=== PATIENT | male | born 1965 | race Caucasian/White ===

== ENCOUNTER 2017-08-27 21:06 | Emergency (ER) | payer MEDICARE ==
[~2017-08-27] VITALS: Ht 180.3 cm; Wt 79.4 kg
[2017-08-27 21:30] VITALS: BP 130/72
--- NOTE | 2017-08-27 21:35 | PHYS DOC ---
Past Medical History Past Medical History: Schizophrenia Past Surgical History: Other Additional Past Surgical Histo: R eye sx Alcohol Use: Heavy Drug Use: Cocaine, Marijuana, Other Adult General Chief Complaint Chief Complaint: COUGH HPI HPI Patient is a 51 year old male presents to the emergency Department with reported fever and cough. Patient states he leaves he has pneumonia. States he' s been sick for 3 days. Patient smokes 2 packs of cigarettes a day and drinks daily. He denies illicit drug use. Review of Systems Review of Systems Constitutional: Reported fever, not measured Eyes: Denies change in visual acuity, redness, or eye pain [] HENT: Denies nasal congestion or sore throat [] Respiratory: Productive cough green sputum, no shortness of breath, no wheezing Cardiovascular: No additional information not addressed in HPI [] GI: Denies abdominal pain, nausea, vomiting, bloody stools or diarrhea [] : Denies dysuria or hematuria [] Musculoskeletal: Denies back pain or joint pain [] Integument: Denies rash or skin lesions [] Neurologic: Denies headache, focal weakness or sensory changes [] Endocrine: Denies polyuria or polydipsia [] All other systems were reviewed and found to be within normal limits, except as documented in this note. Allergies Allergies Allergies Coded Allergies Type Severity Reaction Last Updated Verified No Known Drug Allergies 12/29/14 No Physical Exam Physical Exam Constitutional: Well developed, well nourished, no acute distress, non-toxic appearance. [] HENT: Normocephalic, atraumatic, bilateral external ears normal, tympanic membranes pearly waddell, oropharynx moist, posterior pharynx erythematous, no oral exudates, nose normal. [] Eyes: PERRLA, EOMI, conjunctiva normal, no discharge. [] Neck: Normal range of motion, no tenderness, supple, no stridor. [] Cardiovascular:Heart rate regular rhythm, no murmur [] Lungs & Thorax: Bilateral breath sounds clear to auscultation [] Skin: Warm, dry, no erythema, no rash. [] Current Patient Data Vital Signs Vital Signs Date Time Temp Pulse Resp B/P (MAP) Pulse Ox O2 Delivery O2 Flow Rate FiO2 08/27/17 21:30 98.0 90 18 130/72 (91) 100 Room Air 98.0 Lab Values Laboratory Tests Test 08/27/17 21:45 Influenza Type A Antigen Negative (NEGATIVE) Influenza Type B Antigen Negative (NEGATIVE) EKG EKG [] Radiology/Procedures Radiology/Procedures PA and lateral reviewed, no acute changes[] Course & Med Decision Making Course & Med Decision Making Influenza negative Patient is not coughed at all in the emergency department. He is afebrile. His saturations 90% on room air. Heart rate 92. Chest x-ray negative, influence a negative. Will discharge home with Pol[facility] Pertinent Labs and Imaging studies reviewed. (See chart for details) [] Dragon Disclaimer Dragon Disclaimer This electronic medical record was generated, in whole or in part, using a voice recognition dictation system. Departure Departure Impression: Primary Impression: Cough Disposition: 01 HOME, SELF-CARE Condition: STABLE Referrals: NO PCP (PCP) [facility] Patient Instructions: Cough, Adult, Smoking Cessation Scripts Benzonatate (TESSALON PERLE) 100 Mg Capsule 1 CAP PO TID, #21 CAP Prov: BELA PEDROZA APRN 08/27/17 BELA PEDROZA APRN Aug 27, 2017 21:35
[2017-08-27 22:14] LABS: OBC FLU VALID
[2017-08-27] MEDS ORDERED: BENZ100C PO (22:18)
--- NOTE | 2017-08-28 08:11 | RAD ---
Chest, 2 views, 08/27/2017: History: Cough, fever Comparison is made to a study from 12/29/2014. The heart size and pulmonary vascularity are normal. No pulmonary infiltrates are seen. There is no evidence of pleural fluid. IMPRESSION: No acute cardiopulmonary abnormality is detected.
== END 2017-08-27 22:24 | disposition home or self-care (01) ==
LOC: ER 21:06
DX: R05 Cough (principal); R50.9 Fever, unspecified; F20.9 Schizophrenia, unspecified; F10.20 Alcohol dependence, uncomplicated; F12.10 Cannabis abuse, uncomplicated; F14.10 Cocaine abuse, uncomplicated; F17.210 Nicotine dependence, cigarettes, uncomplicated
CPT/HCPCS: 71020; 87804; 99285-25

== ENCOUNTER 2019-01-01 13:02 | Inpatient (IN) | payer MEDICARE, OTHER ==
[~2019-01-01] VITALS: Ht 180.3 cm; Wt 76.2 kg
[~2019-01-01 13:02] MED LIST: BENZ100C PO
[2019-01-01] MEDS ORDERED: SENN-121 PO (13:11)
[2019-01-01] MEDS ORDERED: MAGN296S9 PO (13:11)
--- NOTE | 2019-01-01 13:16 | PHYS DOC ---
Past Medical History Past Medical History: Other Additional Past Medical Histor: pancreatitis, pna (YENI SALTER DO) Past Surgical History: No Surgical History Additional Past Surgical Histo: R eye sx (YENI SALTER DO) Alcohol Use: Occasionally Drug Use: Methamphetamine (YENI SALTER DO) Adult General Chief Complaint Chief Complaint: Constipation HPI HPI 53-year-old male presents via EMS with report of problems with constipation x 1- 2 months. Patient reports he feels he is currently "impacted ". Reports he hasn 't had a BM in this time. Reports he has been taking laxitives without relief, although he has recently been having watery stools. Denies any nausea or vomiting. Reports some abdominal fullness. Patient does report history of drug abuse including methamphetamines. (YENI SALTER DO) Review of Systems Review of Systems Constitutional: Denies fever or chills [] HENT: Denies nasal congestion or sore throat [] Respiratory: Denies cough or shortness of breath [] Cardiovascular: Denies chest pain or palpitations GI: Reports abdominal pain and constipation; denies nausea or vomiting : Denies dysuria or hematuria [] Musculoskeletal: Denies back pain or joint pain [] Integument: Denies rash or skin lesions [] Neurologic: Denies headache, focal weakness or sensory changes [] Complete systems were reviewed and found to be within normal limits, except as documented in this note. (YENI SALTER DO) Current Medications Current Medications Current Medications Medications (Trade) Dose Ordered Sig/Adi Start Time Stop Time Status Last Admin Dose Admin Fentanyl Citrate (Fentanyl 2ml Vial) 50 mcg 1X ONCE 01/01/19 17:00 01/01/19 17:01 DC 01/01/19 17:25 50 MCG Info (CONTRAST GIVEN -- Rx MONITORING) 1 each PRN DAILY PRN 01/01/19 16:45 01/03/19 16:44 Iohexol (Omnipaque 240 Mg/ml) 50 ml 1X ONCE 01/01/19 16:45 01/01/19 16:46 DC 01/01/19 16:32 50 ML Iohexol (Omnipaque 300 Mg/ml) 75 ml 1X ONCE 01/01/19 16:30 01/01/19 16:31 DC 01/01/19 16:31 75 ML Metronidazole 100 ml @ 100 mls/hr 1X ONCE 01/01/19 17:00 01/01/19 17:59 DC 01/01/19 17:24 100 MLS/HR Piperacillin Sod/ Tazobactam Sod 3.375 gm/Sodium Chloride 50 ml @ 100 mls/hr 1X ONCE 01/01/19 17:00 01/01/19 17:29 DC 01/01/19 17:24 100 MLS/HR Sodium Chloride 1,000 ml @ 1,000 mls/hr 1X ONCE 01/01/19 17:00 01/01/19 17:59 DC 01/01/19 17:23 1,000 MLS/HR (MAYCO ESCALANTE MD) Allergies Allergies Allergies Coded Allergies Type Severity Reaction Last Updated Verified No Known Drug Allergies 12/29/14 No (MAYCO ESCALANTE MD) Physical Exam Physical Exam Constitutional: Well developed, well nourished, no acute distress, non-toxic appearance. [] HENT: Normocephalic, atraumatic, oropharynx moist Eyes: Conjunctiva normal, no discharge. [] Neck: Normal range of motion, no tenderness, supple Cardiovascular: Heart rate regular rhythm, no murmur [] Lungs & Thorax: Bilateral breath sounds clear to auscultation [] Abdomen: Soft, mild distention Rectal: NO impacted or hard stool noted in rectal vault, some watery light brown liquid stool noted Skin: Warm, dry, no erythema, no rash. [] Extremities: No tenderness, ROM intact, no edema. [] Neurologic: Alert and oriented X 3, no focal deficits noted. [] Psychologic: Affect normal, judgement normal, mood normal. [] (YENI SALTER DO) Current Patient Data Vital Signs Vital Signs Date Time Temp Pulse Resp B/P (MAP) Pulse Ox O2 Delivery O2 Flow Rate FiO2 01/01/19 17:06 97 106/58 (74) 98 Room Air 01/01/19 13:14 98.1 14 98.1 (MAYCO ESCALANTE MD) Lab Values Laboratory Tests Test 01/01/19 15:15 White Blood Count 19.4 x10^3/uL (4.0-11.0) H Red Blood Count 4.59 x10^6/uL (4.30-5.70) Hemoglobin 15.0 g/dL (13.0-17.5) Hematocrit 43.3 % (39.0-53.0) Mean Corpuscular Volume 94 fL (79-100) Mean Corpuscular Hemoglobin 33 pg (25-35) Mean Corpuscular Hemoglobin Concent 35 g/dL (31-37) Red Cell Distribution Width 13.4 % (11.5-14.5) Platelet Count 189 x10^3/uL (140-400) Neutrophils (%) (Auto) 94 % (31-73) H Lymphocytes (%) (Auto) 1 % (24-48) L Monocytes (%) (Auto) 4 % (0-9) Eosinophils (%) (Auto) 0 % (0-3) Basophils (%) (Auto) 0 % (0-3) Neutrophils # (Auto) 18.3 x10^3uL (1.8-7.7) H Lymphocytes # (Auto) 0.3 x10^3/uL (1.0-4.8) L Monocytes # (Auto) 0.8 x10^3/uL (0.0-1.1) Eosinophils # (Auto) 0.0 x10^3/uL (0.0-0.7) Basophils # (Auto) 0.0 x10^3/uL (0.0-0.2) Segmented Neutrophils % 77 % (35-66) H Band Neutrophils % 17 % (0-9) H Lymphocytes % 4 % (24-48) L Monocytes % 2 % (0-10) Dohle Bodies Present Platelet Estimate Adequate (ADEQUATE) Erythrocyte Sedimentation Rate 65 (0-15) H Prothrombin Time 15.4 SEC (11.7-14.0) H Prothrombin Time INR 1.3 (0.8-1.1) H PTT 31 SEC (24-38) Sodium Level 135 mmol/L (136-145) L Potassium Level 3.1 mmol/L (3.5-5.1) L Chloride Level 92 mmol/L (98-107) L Carbon Dioxide Level 29 mmol/L (21-32) Anion Gap 14 (6-14) Blood Urea Nitrogen 18 mg/dL (8-26) Creatinine 1.2 mg/dL (0.7-1.3) Estimated GFR (Cockcroft-Gault) 63.8 BUN/Creatinine Ratio 15 (6-20) Glucose Level 122 mg/dL (70-99) H Lactic Acid Level 1.4 mmol/L (0.4-2.0) Calcium Level 8.7 mg/dL (8.5-10.1) Magnesium Level 2.6 mg/dL (1.8-2.4) H Total Bilirubin 0.8 mg/dL (0.2-1.0) Aspartate Amino Transferase (AST) 31 U/L (15-37) Alanine Aminotransferase (ALT) 27 U/L (16-63) Alkaline Phosphatase 88 U/L (46-116) Total Protein 8.1 g/dL (6.4-8.2) Albumin 3.7 g/dL (3.4-5.0) Albumin/Globulin Ratio 0.8 (1.0-1.7) L Lipase 75 U/L (73-393) Laboratory Tests 01/01/19 15:15 Laboratory Tests 01/01/19 15:15 (MAYCO ESCALANTE MD) Lab Values Laboratory Tests Test 01/01/19 15:15 White Blood Count 19.4 x10^3/uL (4.0-11.0) H Red Blood Count 4.59 x10^6/uL (4.30-5.70) Hemoglobin 15.0 g/dL (13.0-17.5) Hematocrit 43.3 % (39.0-53.0) Mean Corpuscular Volume 94 fL (79-100) Mean Corpuscular Hemoglobin 33 pg (25-35) Mean Corpuscular Hemoglobin Concent 35 g/dL (31-37) Red Cell Distribution Width 13.4 % (11.5-14.5) Platelet Count 189 x10^3/uL (140-400) Neutrophils (%) (Auto) 94 % (31-73) H Lymphocytes (%) (Auto) 1 % (24-48) L Monocytes (%) (Auto) 4 % (0-9) Eosinophils (%) (Auto) 0 % (0-3) Basophils (%) (Auto) 0 % (0-3) Neutrophils # (Auto) 18.3 x10^3uL (1.8-7.7) H Lymphocytes # (Auto) 0.3 x10^3/uL (1.0-4.8) L Monocytes # (Auto) 0.8 x10^3/uL (0.0-1.1) Eosinophils # (Auto) 0.0 x10^3/uL (0.0-0.7) Basophils # (Auto) 0.0 x10^3/uL (0.0-0.2) Segmented Neutrophils % 77 % (35-66) H Band Neutrophils % 17 % (0-9) H Lymphocytes % 4 % (24-48) L Monocytes % 2 % (0-10) Dohle Bodies Present Platelet Estimate Adequate (ADEQUATE) Erythrocyte Sedimentation Rate 65 (0-15) H Prothrombin Time 15.4 SEC (11.7-14.0) H Prothrombin Time INR 1.3 (0.8-1.1) H PTT 31 SEC (24-38) Sodium Level 135 mmol/L (136-145) L Potassium Level 3.1 mmol/L (3.5-5.1) L Chloride Level 92 mmol/L (98-107) L Carbon Dioxide Level 29 mmol/L (21-32) Anion Gap 14 (6-14) Blood Urea Nitrogen 18 mg/dL (8-26) Creatinine 1.2 mg/dL (0.7-1.3) Estimated GFR (Cockcroft-Gault) 63.8 BUN/Creatinine Ratio 15 (6-20) Glucose Level 122 mg/dL (70-99) H Lactic Acid Level 1.4 mmol/L (0.4-2.0) Calcium Level 8.7 mg/dL (8.5-10.1) Magnesium Level 2.6 mg/dL (1.8-2.4) H Total Bilirubin 0.8 mg/dL (0.2-1.0) Aspartate Amino Transferase (AST) 31 U/L (15-37) Alanine Aminotransferase (ALT) 27 U/L (16-63) Alkaline Phosphatase 88 U/L (46-116) Total Protein 8.1 g/dL (6.4-8.2) Albumin 3.7 g/dL (3.4-5.0) Albumin/Globulin Ratio 0.8 (1.0-1.7) L Lipase 75 U/L (73-393) Laboratory Tests 01/01/19 15:15 Laboratory Tests 01/01/19 15:15 (YENI SALTER DO) EKG EKG [] (YENI SALTER DO) Radiology/Procedures Radiology/Procedures [] (YENI SALTER DO) Radiology/Procedures [facility] [address] [place] [address] IMAGING REPORT Signed PATIENT: KHUSHI DELATORRE ACCOUNT: [id number] : 1965 LOCATION: ER AGE: 53 SEX: M EXAM STATUS: REG ER ORD. PHYSICIAN: YENI SALTER DO REASON: abdominal pain, constipation PROCEDURE: CT ABD PELV W/ORAL&IV CONTRAST CT of the abdomen and pelvis with contrast 01/01/2019 INDICATION: Abdominal pain. Constipation. COMPARISON STUDY: None available. TECHNIQUE: Multidetector CT imaging of the abdomen and pelvis was performed following the administration of IV contrast. FINDINGS: Visualized lung bases are unremarkable. Small calcification seen in the dome of the liver. There is a punctate nonspecific hypoattenuation in the posterior right liver measuring 3 mm in diameter (axial image 26). There is a second punctate hypodensity in the liver adjacent to the gallbladder fossa measuring 4 mm in diameter (axial image 26). These are too small to characterize by CT. The gallbladder is unremarkable. Spleen is unremarkable. The adrenal glands are grossly normal. The bilateral kidneys are grossly normal. Small cyst is seen within the superior lateral right kidney. Pancreas is somewhat poorly visualized given lack of surrounding fat appears to be grossly normal. There is fluid distention of the large bowel. The bladder is mildly distended. There is marked rectal wall thickening. There appears to be a resultant significant luminal narrowing. Mildly prominent mucosal enhancement appears to be present. Evaluation is limited secondary to lack of contrast within the rectum. Differential considerations include and infectious proctitis. Inflammatory bowel disease, or other inflammatory process. A neoplastic etiology is also possible. There is likely some component of reconstruction given the fluid-filled, most somewhat distended colon. No acute osseous changes are seen. IMPRESSION: 1. Marked thickening of the rectal wall with mildly prominent mucosal enhancement, and evidence of some degree of large bowel obstruction. Etiologies could be infectious or inflammatory. Neoplastic etiology is also possible. Consider endoscopic evaluation. 2. 2 tiny liver hypodensities which are nonspecific, too small to characterize. Consider follow-up imaging based on risk factors, possibly including subsequent rectal findings. 3. Bladder distention Findings discussed with the emergency room physician at 4:[address] DOSING PQRS STATEMENT: One or more of the following individualized dose reduction techniques were utilized for this examination: 1. Automated exposure control 2. Adjustment of the mA and/or kV according to patient size 3. Use of iterative reconstruction technique Electronically signed by: Dudley Anthony MD (01/01/2019 4:50 PM) [facility] DICTATED and SIGNED BY: DUDLEY ANTHONY MD DATE: 01/01/191649 (MAYCO ESCALANTE MD) Course & Med Decision Making Course & Med Decision Making Patient presents with history of present illness and physical exam concerning for constipation. Patient reports concern for possible impaction. Upon arrival patient ended up having liquid stool on floor. Rectal exam without impaction or hard stool in vault. Abdomen non-peritoneal. Patient has history of drug abuse. Labs ordered and pending. CT abd/pelvis also pending. IVF hydration given. Sign out given to Dr. Escalante for further evaluation and final disposition. Discussed current findings and plan with patient, who acknowledges understanding and agreement. (YENI SALTER DO) Course & Med Decision Making Evaluation of patient in ER showed 53-year-old male patient with complaining of rectal pain for more than one month with constipation . Patient had leukocytosis of 19.5 without elevation of lactic acid. Potassium was 3.1. CT of abdomen and pelvis showed thickening of wall of rectum with concern for proctitis or malignancy. Patient requiring admission for further evaluation and treatment. Discussed with Dr. García who is in agreement with admission. Discussed findings and plan with patient and family, who acknowledge understanding and agreement. (MAYCO ESCALANTE MD) Dragon Disclaimer Dragon Disclaimer This electronic medical record was generated, in whole or in part, using a voice recognition dictation system. (YENI SALTER DO) Departure Departure Impression: Primary Impression: Constipation Additional Impressions: Drug abuse Proctitis Hypokalemia Leukocytosis Disposition: ADMITTED INPATIENT (at 1705) Admitting Physician: Mary García (accepted admission at 1704) (MAYCO ESCALANTE MD) Condition: IMPROVED Referrals: NO PCP (PCP) Problem Qualifiers Primary Impression: Constipation Constipation type: unspecified constipation type Qualified Codes: K59.00 - Constipation, unspecified Additional Impressions: Leukocytosis Leukocytosis type: unspecified Qualified Codes: D72.829 - Elevated white blood cell count, unspecified YENI SALTER DO Jan 01, 2019 13:16 MAYCO ESCALANTE MD Jan 01, 2019 17:14
[2019-01-01 15:33] LABS: BASO % 0 % (0-3); EOS % 0 % (0-3); HEMATOCRIT 43.3 % (39.0-53.0); LYMPH # 0.3 x10^3/uL (1.0-4.8); LYMPH % 1 % (24-48); MEAN CORPUSCULAR HEMOGLOBIN 33 pg (25-35); MEAN CORPUSCULAR HGB CONC 35 g/dL (31-37); MEAN CORPUSCULAR VOLUME 94 fL (79-100); MONO # 0.8 x10^3/uL (0.0-1.1); MONO % 4 % (0-9); NEUT # 18.3 x10^3uL (1.8-7.7); NEUT % 94 % (31-73); PLATELET COUNT 189 x10^3/uL (140-400); RED BLOOD COUNT 4.59 x10^6/uL (4.30-5.70); RED CELL DISTRIBUTION WIDTH 13.4 % (11.5-14.5); WHITE BLOOD COUNT 19.4 x10^3/uL (4.0-11.0)
[2019-01-01 15:43] LABS: PROTHROMBIN TIME PATIENT 15.4 SEC (11.7-14.0)
[2019-01-01 15:52] LABS: % BANDS 17 % (0-9); % LYMPHS 4 % (24-48); % MONOS 2 % (0-10); % SEGS 77 % (35-66); PLT ESTIMATE ADEQUATE (ADEQUATE)
[2019-01-01 15:59] LABS: CALCIUM 8.7 mg/dL (8.5-10.1); CREATININE 1.2 mg/dL (0.7-1.3); GFR 63.8; POTASSIUM 3.1 mmol/L (3.5-5.1)
[2019-01-01 16:04] LABS: ALBUMIN 3.7 g/dL (3.4-5.0); ALBUMIN/GLOBULIN RATIO 0.8 (1.0-1.7); MAGNESIUM 2.6 mg/dL (1.8-2.4); TOTAL BILIRUBIN 0.8 mg/dL (0.2-1.0); TOTAL PROTEIN 8.1 g/dL (6.4-8.2)
[2019-01-01] MEDS ORDERED: IOHEXOL 300 MG/ML 100ML VIAL. IV ONE (16:30)
[2019-01-01] MEDS ORDERED: IOHEXOL 240 MG/ML 100 ML VIAL. IV ONE (16:30)
[2019-01-01] MEDS ORDERED: CONTRAST GIVEN. MC PRN (16:45)
[2019-01-01] MEDS ORDERED: IOHEXOL 240 MG/ML 50ML VIAL. PO ONE (16:45)
--- NOTE | 2019-01-01 16:54 | RAD ---
CT of the abdomen and pelvis with contrast 01/01/2019 INDICATION: Abdominal pain. Constipation. COMPARISON STUDY: None available. TECHNIQUE: Multidetector CT imaging of the abdomen and pelvis was performed following the administration of IV contrast. FINDINGS: Visualized lung bases are unremarkable. Small calcification seen in the dome of the liver. There is a punctate nonspecific hypoattenuation in the posterior right liver measuring 3 mm in diameter (axial image 26). There is a second punctate hypodensity in the liver adjacent to the gallbladder fossa measuring 4 mm in diameter (axial image 26). These are too small to characterize by CT. The gallbladder is unremarkable. Spleen is unremarkable. The adrenal glands are grossly normal. The bilateral kidneys are grossly normal. Small cyst is seen within the superior lateral right kidney. Pancreas is somewhat poorly visualized given lack of surrounding fat appears to be grossly normal. There is fluid distention of the large bowel. The bladder is mildly distended. There is marked rectal wall thickening. There appears to be a resultant significant luminal narrowing. Mildly prominent mucosal enhancement appears to be present. Evaluation is limited secondary to lack of contrast within the rectum. Differential considerations include and infectious proctitis. Inflammatory bowel disease, or other inflammatory process. A neoplastic etiology is also possible. There is likely some component of reconstruction given the fluid-filled, most somewhat distended colon. No acute osseous changes are seen. IMPRESSION: 1. Marked thickening of the rectal wall with mildly prominent mucosal enhancement, and evidence of some degree of large bowel obstruction. Etiologies could be infectious or inflammatory. Neoplastic etiology is also possible. Consider endoscopic evaluation. 2. 2 tiny liver hypodensities which are nonspecific, too small to characterize. Consider follow-up imaging based on risk factors, possibly including subsequent rectal findings. 3. Bladder distention Findings discussed with the emergency room physician at 4:[address] DOSING PQRS STATEMENT: One or more of the following individualized dose reduction techniques were utilized for this examination: 1. Automated exposure control 2. Adjustment of the mA and/or kV according to patient size 3. Use of iterative reconstruction technique Electronically signed by: Dudley Vu MD (01/01/2019 4:50 PM) [facility]
[2019-01-01] MEDS ORDERED: fentaNYL PF VIAL 100 MCG/2 ML VIAL IV ONE (17:00)
[2019-01-01] MEDS ORDERED: IV NORMAL SALINE 1000ML BAG 1,000 ML IV ONE (17:00)
[2019-01-01] MEDS ORDERED: PIPERACILLIN/TAZOBACTAM 3.375 GM in IV NORMAL SALINE 50ML 50 ML IV ONE (17:00)
[2019-01-01] MEDS ORDERED: ACETAMINOPHEN/CODEINE 300/30MG TABLET. PO PRN (17:15)
[2019-01-01] MEDS ORDERED: POTASSIUM CHLORIDE 20 MEQ TABLET.ER. PO ONE (17:15)
[2019-01-01] MEDS ORDERED: ONDANSETRON ODT 4 MG TAB.RAPDIS. PO PRN (17:15)
[2019-01-01] MEDS ORDERED: ACETAMINOPHEN 500 MG TABLET PO PRN (17:15)
[2019-01-01] MEDS ORDERED: diphenhydrAMINE HCL 25 MG CAPSULE PO PRN (17:15)
[2019-01-01] MEDS ORDERED: MAGNESIUM HYDROXIDE 2,400 MG/30 ML ORAL.SUSP. PO PRN (17:15)
[2019-01-01] MEDS ORDERED: ONDANSETRON PF 4 MG/2 ML VIAL. IV PRN (17:15)
--- NOTE | 2019-01-01 19:28 | PDOC1 ---
History and Physical Date of Admission Date of Admission DATE: 01/01/19 TIME: 19:23 Identification/Chief Complaint Chief Complaint weight Loss, palpable rectal mass by palpation, bloody BM Source Source: Caregiver, Chart review, Patient History of Present Illness History of Present Illness 53-year-old white male, does not usually see a PCP, only two home meds namely Haldol and benztropine for some psych issues. Has noticed significant weight loss and past few months, poor by mouth appetite, palpable rectal mass and bloody BM today which I witnessed in the bedside commode at ER. HE said he waited too long , he is concerned about cancer or that it could be malignant He denies known family history of rectal cancer or colon cancer but then again he is estranged from his family. NEver had c scope done or medical care really. CAT scan shows a possible rectal mass with some signs of inflammation or infectious process in that rectal area. Patient claims fever at home on ROS but I'm unsure how reliable that is. He does have leukocytosis. Patient admitted and will consult GS and GI because of this new rectal mass inflammation/ infection concerning for malignancy especially given overall clinical picture. I did update him and discuss with him my plan of care and he agrees Full code Seen at ER Does smoke tobacco significantly and is an occasional alcohol drinker Past Medical History Psych: Anxiety Past Surgical History Past Surgical History: No pertinent history Family History Family History: No Significant Social History Smoke: <1 pack per day ALCOHOL: occassional Drugs: None Current Problem List Problem List Problems Medical Problems: (1) Constipation Status: Acute (2) Drug abuse Status: Acute (3) Hypokalemia Status: Acute (4) Leukocytosis Status: Acute (5) Proctitis Status: Acute Current Medications Current Medications Current Medications Iohexol (Omnipaque 300 Mg/ml) 75 ml 1X ONCE IV Last administered on 01/01/19at 16:31; Start 01/01/19 at 16:30; Stop 01/01/19 at 16:31; Status DC Iohexol (Omnipaque 240 Mg/ml) 30 ml 1X ONCE IV ; Start 01/01/19 at 16:30; Stop 01/01/19 at 16:31; Status DC Iohexol (Omnipaque 240 Mg/ml) 50 ml 1X ONCE PO Last administered on 01/01/19at 16:32; Start 01/01/19 at 16:45; Stop 01/01/19 at 16:46; Status DC Info (CONTRAST GIVEN -- Rx MONITORING) 1 each PRN DAILY PRN MC SEE COMMENTS; Start 01/01/19 at 16:45; Stop 01/03/19 at 16:44 Sodium Chloride 1,000 ml @ 1,000 mls/hr 1X ONCE IV Last administered on at 17:23; Start 01/01/19 at 17:00; Stop 01/01/19 at 17:59; Status DC Fentanyl Citrate (Fentanyl 2ml Vial) 50 mcg 1X ONCE IV Last administered on 17:25; Start 01/01/19 at 17:00; Stop 01/01/19 at 17:01; Status DC Piperacillin Sod/ Tazobactam Sod 3.375 gm/Sodium Chloride 50 ml @ 100 mls/hr 1X ONCE IV Last administered on 01/01/19at 17:24; Start 01/01/19 at 17:00; Stop 01/01/19 at 17:29; Status DC Metronidazole 100 ml @ 100 mls/hr 1X ONCE IV Last administered on 01/01/19at 17 :24; Start 01/01/19 at 17:00; Stop 01/01/19 at 17:59; Status DC Potassium Chloride (Klor-Con) 40 meq 1X ONCE PO Last administered on 01/01/19at 17:25; Start 01/01/19 at 17:15; Stop 01/01/19 at 17:16; Status DC Magnesium Hydroxide (Milk Of Magnesia) 2,400 mg PRN DAILY PRN PO CONSTIPATION; Start 01/01/19 at 17:15 Docusate Sodium (Colace) 100 mg DAILY PO ; Start 01/02/19 at 09:00 Acetaminophen (Tylenol) 500 mg PRN Q6HRS PRN PO MILD PAIN / TEMP; Start at 17:15 Acetaminophen/ Codeine Phosphate (Tylenol #3) 1 tab PRN Q6HRS PRN PO MODERATE PAIN; Start 01/01/19 at 17:15 Ondansetron HCl (Zofran) 4 mg PRN Q6HRS PRN IV NAUSEA/VOMITING; Start 01/01/19 at 17:15 Ondansetron HCl (Zofran Odt) 4 mg PRN Q6HRS PRN PO NAUSEA/VOMITING; Start at 17:15 Diphenhydramine HCl (Benadryl) 25 mg PRN QHS PRN PO INSOMNIA; Start 01/01/19 at 17:15 Sodium Chloride 1,000 ml @ 150 mls/hr Q6H40M IV ; Start 01/01/19 at 17:14; Stop 01/02/19 at 17:13 Active Scripts Active Tessalon Perle (Benzonatate) 100 Mg Capsule 1 Cap PO TID Allergies Allergies: Coded Allergies: No Known Drug Allergies (Unverified , 12/29/14) ROS Review of System Weight loss, bloody BM, weak, poor by mouth, there is of ROS 14 point negative Physical Exam General: Alert, Oriented X3, Cooperative, No acute distress HEENT: Atraumatic, PERRLA, EOMI Lungs: Clear to auscultation, Normal air movement Heart: S1S2, RRR, no thrills, no rubs, no gallops, no murmurs Cardiovascular: S1, S2 Abdomen: Normal bowel sounds, Soft, No tenderness, No hepatosplenomegaly, No masses Male Genitals Exam: normal genitalia, other (BELKIS not performed, bloody rectal vault) Extremities: No clubbing, No cyanosis, No edema, Normal pulses, No tenderness/ swelling Skin: No rashes, No breakdown, No significant lesion Neuro: Normal gait, Normal speech, Strength at 5/5 X4 ext, Normal tone, Sensation intact, Cranial nerves 3-12 NL, Reflexes 2+ Psych/Mental Status: Mental status NL, Mood NL Vitals Vitals Vital Signs Date Time Temp Pulse Resp B/P (MAP) Pulse Ox O2 Delivery O2 Flow Rate FiO2 01/01/19 19:06 87 93/52 (66) Room Air 01/01/19 18:06 97 01/01/19 13:14 98.1 14 98.1 Labs Labs Laboratory Tests Test 01/01/19 15:15 White Blood Count 19.4 x10^3/uL (4.0-11.0) Red Blood Count 4.59 x10^6/uL (4.30-5.70) Hemoglobin 15.0 g/dL (13.0-17.5) Hematocrit 43.3 % (39.0-53.0) Mean Corpuscular Volume 94 fL (79-100) Mean Corpuscular Hemoglobin 33 pg (25-35) Mean Corpuscular Hemoglobin Concent 35 g/dL (31-37) Red Cell Distribution Width 13.4 % (11.5-14.5) Platelet Count 189 x10^3/uL (140-400) Neutrophils (%) (Auto) 94 % (31-73) Lymphocytes (%) (Auto) 1 % (24-48) Monocytes (%) (Auto) 4 % (0-9) Eosinophils (%) (Auto) 0 % (0-3) Basophils (%) (Auto) 0 % (0-3) Neutrophils # (Auto) 18.3 x10^3uL (1.8-7.7) Lymphocytes # (Auto) 0.3 x10^3/uL (1.0-4.8) Monocytes # (Auto) 0.8 x10^3/uL (0.0-1.1) Eosinophils # (Auto) 0.0 x10^3/uL (0.0-0.7) Basophils # (Auto) 0.0 x10^3/uL (0.0-0.2) Segmented Neutrophils % 77 % (35-66) Band Neutrophils % 17 % (0-9) Lymphocytes % 4 % (24-48) Monocytes % 2 % (0-10) Dohle Bodies Present Platelet Estimate Adequate (ADEQUATE) Erythrocyte Sedimentation Rate 65 (0-15) Prothrombin Time 15.4 SEC (11.7-14.0) Prothromb Time International Ratio 1.3 (0.8-1.1) Activated Partial Thromboplast Time 31 SEC (24-38) Sodium Level 135 mmol/L (136-145) Potassium Level 3.1 mmol/L (3.5-5.1) Chloride Level 92 mmol/L (98-107) Carbon Dioxide Level 29 mmol/L (21-32) Anion Gap 14 (6-14) Blood Urea Nitrogen 18 mg/dL (8-26) Creatinine 1.2 mg/dL (0.7-1.3) Estimated GFR (Cockcroft-Gault) 63.8 BUN/Creatinine Ratio 15 (6-20) Glucose Level 122 mg/dL (70-99) Lactic Acid Level 1.4 mmol/L (0.4-2.0) Calcium Level 8.7 mg/dL (8.5-10.1) Magnesium Level 2.6 mg/dL (1.8-2.4) Total Bilirubin 0.8 mg/dL (0.2-1.0) Aspartate Amino Transf (AST/SGOT) 31 U/L (15-37) Alanine Aminotransferase (ALT/SGPT) 27 U/L (16-63) Alkaline Phosphatase 88 U/L (46-116) Total Protein 8.1 g/dL (6.4-8.2) Albumin 3.7 g/dL (3.4-5.0) Albumin/Globulin Ratio 0.8 (1.0-1.7) Lipase 75 U/L (73-393) Laboratory Tests Test 01/01/19 15:15 White Blood Count 19.4 x10^3/uL (4.0-11.0) Red Blood Count 4.59 x10^6/uL (4.30-5.70) Hemoglobin 15.0 g/dL (13.0-17.5) Hematocrit 43.3 % (39.0-53.0) Mean Corpuscular Volume 94 fL (79-100) Mean Corpuscular Hemoglobin 33 pg (25-35) Mean Corpuscular Hemoglobin Concent 35 g/dL (31-37) Red Cell Distribution Width 13.4 % (11.5-14.5) Platelet Count 189 x10^3/uL (140-400) Neutrophils (%) (Auto) 94 % (31-73) Lymphocytes (%) (Auto) 1 % (24-48) Monocytes (%) (Auto) 4 % (0-9) Eosinophils (%) (Auto) 0 % (0-3) Basophils (%) (Auto) 0 % (0-3) Neutrophils # (Auto) 18.3 x10^3uL (1.8-7.7) Lymphocytes # (Auto) 0.3 x10^3/uL (1.0-4.8) Monocytes # (Auto) 0.8 x10^3/uL (0.0-1.1) Eosinophils # (Auto) 0.0 x10^3/uL (0.0-0.7) Basophils # (Auto) 0.0 x10^3/uL (0.0-0.2) Segmented Neutrophils % 77 % (35-66) Band Neutrophils % 17 % (0-9) Lymphocytes % 4 % (24-48) Monocytes % 2 % (0-10) Dohle Bodies Present Platelet Estimate Adequate (ADEQUATE) Erythrocyte Sedimentation Rate 65 (0-15) Prothrombin Time 15.4 SEC (11.7-14.0) Prothromb Time International Ratio 1.3 (0.8-1.1) Activated Partial Thromboplast Time 31 SEC (24-38) Sodium Level 135 mmol/L (136-145) Potassium Level 3.1 mmol/L (3.5-5.1) Chloride Level 92 mmol/L (98-107) Carbon Dioxide Level 29 mmol/L (21-32) Anion Gap 14 (6-14) Blood Urea Nitrogen 18 mg/dL (8-26) Creatinine 1.2 mg/dL (0.7-1.3) Estimated GFR (Cockcroft-Gault) 63.8 BUN/Creatinine Ratio 15 (6-20) Glucose Level 122 mg/dL (70-99) Lactic Acid Level 1.4 mmol/L (0.4-2.0) Calcium Level 8.7 mg/dL (8.5-10.1) Magnesium Level 2.6 mg/dL (1.8-2.4) Total Bilirubin 0.8 mg/dL (0.2-1.0) Aspartate Amino Transf (AST/SGOT) 31 U/L (15-37) Alanine Aminotransferase (ALT/SGPT) 27 U/L (16-63) Alkaline Phosphatase 88 U/L (46-116) Total Protein 8.1 g/dL (6.4-8.2) Albumin 3.7 g/dL (3.4-5.0) Albumin/Globulin Ratio 0.8 (1.0-1.7) Lipase 75 U/L (73-393) VTE Prophylaxis Ordered VTE Prophylaxis Devices: Contraindicated VTE Pharmacological Prophylaxi: Contraindicated Assessment/Plan Assessment/Plan A/P Rectal mass concerning for malignancy Significant weight loss Smoker, occasional drinker Colonic inflammation/infection ? SIRS? Fevers at home Plan: Empiric Levaquin GI and GS consults Regular diet tonight but nothing by mouth post midnight in case C scope tomorrow Hold off any blood thinners as there is bloody BM Likely malignancy until proven otherwise given overall clinical picture NICpatch, 1: 1 < 30 mins smoking cessation FULL CODE Seen at ER ALAINA CHARLES MD Jan 01, 2019 19:28
[2019-01-01 19:30] VITALS: BP 96/50
[2019-01-01] MEDS ORDERED: NICOTINE 21MG PATCH. TD PRN (19:30)
[2019-01-01] MEDS ORDERED: levOFLOXacin PER PHARMACY. MC PRN (19:30)
--- NOTE | 2019-01-01 19:30 | NUR ---
The patient, KHUSHI DELATORRE, 53 y/o, M admitted by ALAINA CHARLES MD, was given written information regarding hospital policies, unit procedures and contact persons. Patient transferred to room by ED staff via Wheelchair. Valuables were checked and noted. Patient denies pain at this time. Patient is currently laying in bed with eyes shut and lights off. Patient states no other needs at this time. This RN will continue to monitor this patient.
[2019-01-01] MEDS: IV NORMAL SALINE 1000ML BAG 1,000 ML IV SCH ×2 (20:13→23:54)
[2019-01-01] MEDS ORDERED: ALPRAZolam 0.25 MG TABLET PO PRN (20:15)
[2019-01-01 23:00] VITALS: BP 95/54
[2019-01-02 03:00] VITALS: BP 99/67
[2019-01-02] MEDS: IV NORMAL SALINE 1000ML BAG 1,000 ML IV SCH ×2 (04:31→12:23)
[2019-01-02 07:00] VITALS: BP 100/60
[2019-01-02 07:11] LABS: CALCIUM 7.5 mg/dL (8.5-10.1); CREATININE 0.9 mg/dL (0.7-1.3)
[2019-01-02 07:34] LABS: BASO % 0 % (0-3); EOS % 0 % (0-3); HEMATOCRIT 33.8 % (39.0-53.0); HEMOGLOBIN 11.9 g/dL (13.0-17.5); LYMPH # 0.8 x10^3/uL (1.0-4.8); LYMPH % 5 % (24-48); MEAN CORPUSCULAR HEMOGLOBIN 33 pg (25-35); MEAN CORPUSCULAR HGB CONC 35 g/dL (31-37); MEAN CORPUSCULAR VOLUME 95 fL (79-100); MONO # 1.3 x10^3/uL (0.0-1.1); MONO % 8 % (0-9); NEUT # 15.3 x10^3uL (1.8-7.7); NEUT % 88 % (31-73); PLATELET COUNT 161 x10^3/uL (140-400); RED BLOOD COUNT 3.57 x10^6/uL (4.30-5.70); RED CELL DISTRIBUTION WIDTH 13.2 % (11.5-14.5); WHITE BLOOD COUNT 17.4 x10^3/uL (4.0-11.0)
[2019-01-02] MEDS ORDERED: DOCUSATE SODIUM 100 MG CAPSULE. PO SCH (09:00)
--- NOTE | 2019-01-02 09:09 | PDOC2 ---
GI CONSULT Reason For Consult: Rectal mass HPI: HPI: 53 y/o male admitted through the ER. Tells me has been ill x 1.5 months. H/o constipation w/ previous bowel pattern of 1 stool QOD w/ coffee. This changed ~ 1.5 months ago - he says "I haven't had a bowel movement since then" despite trial of enemas. I clarified - he has been passing brown "fluid" but no formed stool. This last occurred this morning. He noted some associated red blood yesterday. Has also had "intestine pain" during this time. Reports normal appetite and "I've been eating everything I'm supposed to eat!" during this time but has lost some weight (not sure how much). Also reports night sweats. Has occasional heartburn improved w/ Zantac PRN. No n/v, dysphagia, or melena. No GB, liver, or PUD history. No previous EGD or colonoscopy. No NSAID use. Had pancreatitis once "from an infection." Labs significant for WBC 19.4 (now 17.4), Hgb 15 (now 11.9), MCV 95, INR 1.3. Normal plt, BUN, Cr, LFTs, and lipase. On CT: marked rectal wall thickening/luminal narrowing and evidence of some degree of large bowel obstruction (lack of contrast in rectum, fluid-filled and somewhat distended colon) - could be infectious, inflammatory, or neoplastic. Also noted 2 tiny liver hypodensities. Was given IV metronidazole and has been continued on levofloxacin. PMH: PMH: GABBY (no CPAP), pneumonia, anxiety/panic, OA, GERD, pancreatitis appendectomy, tonsillectomy, right eye surgery FH: Family History: Other (doesn't know) Social History: Smoke: <1 pack per day ALCOHOL: occassional (every couple weeks - can't quantify) Drugs: Cocaine, Marijuana, Crystal meth ROS: GEN: +sweats HEENT: Denies blurred vision, sore throat CV: Denies chest pain RESP: +cough GI: Per HPI : Denies hematuria, dysuria ENDO: +weight loss NEURO: Denies confusion, dizziness MSK: Denies weakness, joint pain/swelling SKIN: Denies jaundice, pruritus Vitals: Vitals: Vital Signs Date Time Temp Pulse Resp B/P (MAP) Pulse Ox O2 Delivery O2 Flow Rate FiO2 01/02/19 08:15 Room Air 01/02/19 07:00 98.1 72 16 100/60 (73) 93 98.1 Labs: Labs: Laboratory Tests Test 01/01/19 15:15 01/02/19 05:30 White Blood Count 19.4 x10^3/uL (4.0-11.0) 17.4 x10^3/uL (4.0-11.0) Red Blood Count 4.59 x10^6/uL (4.30-5.70) 3.57 x10^6/uL (4.30-5.70) Hemoglobin 15.0 g/dL (13.0-17.5) 11.9 g/dL (13.0-17.5) Hematocrit 43.3 % (39.0-53.0) 33.8 % (39.0-53.0) Mean Corpuscular Volume 94 fL (79-100) 95 fL (79-100) Mean Corpuscular Hemoglobin 33 pg (25-35) 33 pg (25-35) Mean Corpuscular Hemoglobin Concent 35 g/dL (31-37) 35 g/dL (31-37) Red Cell Distribution Width 13.4 % (11.5-14.5) 13.2 % (11.5-14.5) Platelet Count 189 x10^3/uL (140-400) 161 x10^3/uL (140-400) Neutrophils (%) (Auto) 94 % (31-73) 88 % (31-73) Lymphocytes (%) (Auto) 1 % (24-48) 5 % (24-48) Monocytes (%) (Auto) 4 % (0-9) 8 % (0-9) Eosinophils (%) (Auto) 0 % (0-3) 0 % (0-3) Basophils (%) (Auto) 0 % (0-3) 0 % (0-3) Neutrophils # (Auto) 18.3 x10^3uL (1.8-7.7) 15.3 x10^3uL (1.8-7.7) Lymphocytes # (Auto) 0.3 x10^3/uL (1.0-4.8) 0.8 x10^3/uL (1.0-4.8) Monocytes # (Auto) 0.8 x10^3/uL (0.0-1.1) 1.3 x10^3/uL (0.0-1.1) Eosinophils # (Auto) 0.0 x10^3/uL (0.0-0.7) 0.0 x10^3/uL (0.0-0.7) Basophils # (Auto) 0.0 x10^3/uL (0.0-0.2) 0.0 x10^3/uL (0.0-0.2) Segmented Neutrophils % 77 % (35-66) Band Neutrophils % 17 % (0-9) Lymphocytes % 4 % (24-48) Monocytes % 2 % (0-10) Dohle Bodies Present Platelet Estimate Adequate (ADEQUATE) Erythrocyte Sedimentation Rate 65 (0-15) Prothrombin Time 15.4 SEC (11.7-14.0) Prothromb Time International Ratio 1.3 (0.8-1.1) Activated Partial Thromboplast Time 31 SEC (24-38) Sodium Level 135 mmol/L (136-145) 134 mmol/L (136-145) Potassium Level 3.1 mmol/L (3.5-5.1) 3.0 mmol/L (3.5-5.1) Chloride Level 92 mmol/L (98-107) 97 mmol/L (98-107) Carbon Dioxide Level 29 mmol/L (21-32) 26 mmol/L (21-32) Anion Gap 14 (6-14) 11 (6-14) Blood Urea Nitrogen 18 mg/dL (8-26) 14 mg/dL (8-26) Creatinine 1.2 mg/dL (0.7-1.3) 0.9 mg/dL (0.7-1.3) Estimated GFR (Cockcroft-Gault) 63.8 89.0 BUN/Creatinine Ratio 15 (6-20) Glucose Level 122 mg/dL (70-99) 110 mg/dL (70-99) Lactic Acid Level 1.4 mmol/L (0.4-2.0) Calcium Level 8.7 mg/dL (8.5-10.1) 7.5 mg/dL (8.5-10.1) Magnesium Level 2.6 mg/dL (1.8-2.4) Total Bilirubin 0.8 mg/dL (0.2-1.0) Aspartate Amino Transf (AST/SGOT) 31 U/L (15-37) Alanine Aminotransferase (ALT/SGPT) 27 U/L (16-63) Alkaline Phosphatase 88 U/L (46-116) Total Protein 8.1 g/dL (6.4-8.2) Albumin 3.7 g/dL (3.4-5.0) Albumin/Globulin Ratio 0.8 (1.0-1.7) Lipase 75 U/L (73-393) Allergies: Coded Allergies: No Known Drug Allergies (Unverified , 12/29/14) Medications: Current Medications Medications (Trade) Dose Ordered Sig/Adi Route PRN Reason Start Time Stop Time Status Last Admin Dose Admin Iohexol (Omnipaque 300 Mg/ml) 75 ml 1X ONCE IV 01/01/19 16:30 01/01/19 16:31 DC 01/01/19 16:31 Iohexol (Omnipaque 240 Mg/ml) 50 ml 1X ONCE PO 01/01/19 16:45 01/01/19 16:46 DC 01/01/19 16:32 Sodium Chloride 1,000 ml @ 1,000 mls/hr 1X ONCE IV 01/01/19 17:00 01/01/19 17:59 DC 01/01/19 17:23 Fentanyl Citrate (Fentanyl 2ml Vial) 50 mcg 1X ONCE IV 01/01/19 17:00 01/01/19 17:01 DC 01/01/19 17:25 Piperacillin Sod/ Tazobactam Sod 3.375 gm/Sodium Chloride 50 ml @ 100 mls/hr 1X ONCE IV 01/01/19 17:00 01/01/19 17:29 DC 01/01/19 17:24 Metronidazole 100 ml @ 100 mls/hr 1X ONCE IV 01/01/19 17:00 01/01/19 17:59 DC 01/01/19 17:24 Potassium Chloride (Klor-Con) 40 meq 1X ONCE PO 01/01/19 17:15 01/01/19 17:16 DC 01/01/19 17:25 Sodium Chloride 1,000 ml @ 150 mls/hr Q6H40M IV 01/01/19 17:14 01/02/19 17:13 01/02/19 04:31 Levofloxacin/ Dextrose 100 ml @ 100 mls/hr Q24H IV 01/01/19 21:00 01/01/19 20:13 Imaging: Imaging: CT A/P w/ oral & IV contrast FINDINGS: Visualized lung bases are unremarkable. Small calcification seen in the dome of the liver. There is a punctate nonspecific hypoattenuation in the posterior right liver measuring 3 mm in diameter (axial image 26). There is a second punctate hypodensity in the liver adjacent to the gallbladder fossa measuring 4 mm in diameter (axial image 26). These are too small to characterize by CT. The gallbladder is unremarkable. Spleen is unremarkable. The adrenal glands are grossly normal. The bilateral kidneys are grossly normal. Small cyst is seen within the superior lateral right kidney. Pancreas is somewhat poorly visualized given lack of surrounding fat appears to be grossly normal. There is fluid distention of the large bowel. The bladder is mildly distended. There is marked rectal wall thickening. There appears to be a resultant significant luminal narrowing. Mildly prominent mucosal enhancement appears to be present. Evaluation is limited secondary to lack of contrast within the rectum. Differential considerations include and infectious proctitis. Inflammatory bowel disease, or other inflammatory process. A neoplastic etiology is also possible. There is likely some component of reconstruction given the fluid-filled, most somewhat distended colon. No acute osseous changes are seen. IMPRESSION: 1. Marked thickening of the rectal wall with mildly prominent mucosal enhancement, and evidence of some degree of large bowel obstruction. Etiologies could be infectious or inflammatory. Neoplastic etiology is also possible. Consider endoscopic evaluation. 2. 2 tiny liver hypodensities which are nonspecific, too small to characterize. Consider follow-up imaging based on risk factors, possibly including subsequent rectal findings. 3. Bladder distention PE: GEN: NAD HEENT: previous right eye surgery LUNGS: clear anteriorly, occasional wet cough HEART: RRR ABD: NABS, soft but firmer in lower abdomen, tender diffusely below umbilicus - worse in suprapubic region over to LLQ EXTREMITY: No edema SKIN: No rashes, no jaundice NEURO/PSYCH: A & O 3, flat A/P: A/P: Change in bowel habits, rectal bleeding, weight loss, night sweats Leukocytosis, normocytic anemia, hypokalemia Abnormal CT - rectal wall thickening, some degree of large bowel obstruction, liver hypodensities Heartburn CRC screen - none Remote h/o pancreatitis +substance abuse, psych issues -- Okay for clear liquids now. Will review imaging, recommendations for 'scope/ prep, and antibiotics w/ Dr. Cai. Update - reviewed chart - pt refused IV fluids and left AMA. MICHELLE ROSENBERG Jan 02, 2019 09:09
[2019-01-02] MEDS ORDERED: PANTOPRAZOLE IV PUSH 40 MG VIAL. IVP SCH (10:00)
--- NOTE | 2019-01-02 10:31 | PDOC ---
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 GS has yet to see Concerning for malignancy Plan CPM await other consults for further plan Pt aware of likely diagnosis Vitals Vitals Vital Signs Date Time Temp Pulse Resp B/P (MAP) Pulse Ox O2 Delivery O2 Flow Rate FiO2 01/02/19 08:15 Room Air 01/02/19 07:00 98.1 72 16 100/60 (73) 93 98.1 Physical Exam General: Alert, Oriented X3, Cooperative, No acute distress Heart: Regular rate, Normal S1, Normal S2 Lungs: Clear Abdomen: Normal bowel sounds, Soft, No tenderness, No hepatosplenomegaly, No masses Extremities: No clubbing, No cyanosis, No edema, Normal pulses, No tenderness/ swelling Skin: No rashes, No breakdown, No significant lesion Labs LABS Laboratory Tests Test 01/01/19 15:15 01/02/19 05:30 White Blood Count 19.4 x10^3/uL (4.0-11.0) 17.4 x10^3/uL (4.0-11.0) Red Blood Count 4.59 x10^6/uL (4.30-5.70) 3.57 x10^6/uL (4.30-5.70) Hemoglobin 15.0 g/dL (13.0-17.5) 11.9 g/dL (13.0-17.5) Hematocrit 43.3 % (39.0-53.0) 33.8 % (39.0-53.0) Mean Corpuscular Volume 94 fL (79-100) 95 fL (79-100) Mean Corpuscular Hemoglobin 33 pg (25-35) 33 pg (25-35) Mean Corpuscular Hemoglobin Concent 35 g/dL (31-37) 35 g/dL (31-37) Red Cell Distribution Width 13.4 % (11.5-14.5) 13.2 % (11.5-14.5) Platelet Count 189 x10^3/uL (140-400) 161 x10^3/uL (140-400) Neutrophils (%) (Auto) 94 % (31-73) 88 % (31-73) Lymphocytes (%) (Auto) 1 % (24-48) 5 % (24-48) Monocytes (%) (Auto) 4 % (0-9) 8 % (0-9) Eosinophils (%) (Auto) 0 % (0-3) 0 % (0-3) Basophils (%) (Auto) 0 % (0-3) 0 % (0-3) Neutrophils # (Auto) 18.3 x10^3uL (1.8-7.7) 15.3 x10^3uL (1.8-7.7) Lymphocytes # (Auto) 0.3 x10^3/uL (1.0-4.8) 0.8 x10^3/uL (1.0-4.8) Monocytes # (Auto) 0.8 x10^3/uL (0.0-1.1) 1.3 x10^3/uL (0.0-1.1) Eosinophils # (Auto) 0.0 x10^3/uL (0.0-0.7) 0.0 x10^3/uL (0.0-0.7) Basophils # (Auto) 0.0 x10^3/uL (0.0-0.2) 0.0 x10^3/uL (0.0-0.2) Segmented Neutrophils % 77 % (35-66) Band Neutrophils % 17 % (0-9) Lymphocytes % 4 % (24-48) Monocytes % 2 % (0-10) Dohle Bodies Present Platelet Estimate Adequate (ADEQUATE) Erythrocyte Sedimentation Rate 65 (0-15) Prothrombin Time 15.4 SEC (11.7-14.0) Prothromb Time International Ratio 1.3 (0.8-1.1) Activated Partial Thromboplast Time 31 SEC (24-38) Sodium Level 135 mmol/L (136-145) 134 mmol/L (136-145) Potassium Level 3.1 mmol/L (3.5-5.1) 3.0 mmol/L (3.5-5.1) Chloride Level 92 mmol/L (98-107) 97 mmol/L (98-107) Carbon Dioxide Level 29 mmol/L (21-32) 26 mmol/L (21-32) Anion Gap 14 (6-14) 11 (6-14) Blood Urea Nitrogen 18 mg/dL (8-26) 14 mg/dL (8-26) Creatinine 1.2 mg/dL (0.7-1.3) 0.9 mg/dL (0.7-1.3) Estimated GFR (Cockcroft-Gault) 63.8 89.0 BUN/Creatinine Ratio 15 (6-20) Glucose Level 122 mg/dL (70-99) 110 mg/dL (70-99) Lactic Acid Level 1.4 mmol/L (0.4-2.0) Calcium Level 8.7 mg/dL (8.5-10.1) 7.5 mg/dL (8.5-10.1) Magnesium Level 2.6 mg/dL (1.8-2.4) Total Bilirubin 0.8 mg/dL (0.2-1.0) Aspartate Amino Transf (AST/SGOT) 31 U/L (15-37) Alanine Aminotransferase (ALT/SGPT) 27 U/L (16-63) Alkaline Phosphatase 88 U/L (46-116) Total Protein 8.1 g/dL (6.4-8.2) Albumin 3.7 g/dL (3.4-5.0) Albumin/Globulin Ratio 0.8 (1.0-1.7) Lipase 75 U/L (73-393) Iron Level 23 ug/dL (65-175) Total Iron Binding Capacity 175 ug/dL (250-450) Iron Saturation 13 % (15-34) Review of Systems Review of Systems A 14 point ROS was completed with the following noted as positive: Other systems reviewed and negative. \CONSTITUTIONAL: EYES: No recent changes SKIN: No rash or itching CARDIOVASCULAR: No chest pain, syncope, palpitations, or edema RESPIRATORY: No SOB or cough GASTROINTESTINAL: NEUROLOGICAL: No headaches or weakness ENDOCRINE: No cold or heat intolerance GENITOURINARY: No urgency or frequency of urination MUSCULOSKELETAL: No back pain or joint pain LYMPHATICS: No enlarged lymph nodes PSYCHIATRIC: No anxiety or depression Assessment and Plan Assessmemt and Plan Problems Medical Problems: (1) Constipation Status: Acute (2) Drug abuse Status: Acute (3) Hypokalemia Status: Acute (4) Leukocytosis Status: Acute (5) Proctitis Status: Acute Comment Review of Relevant I have reviewed the following items roland (where applicable) has been applied. Labs Laboratory Tests Test 01/01/19 15:15 01/02/19 05:30 White Blood Count 19.4 x10^3/uL (4.0-11.0) 17.4 x10^3/uL (4.0-11.0) Red Blood Count 4.59 x10^6/uL (4.30-5.70) 3.57 x10^6/uL (4.30-5.70) Hemoglobin 15.0 g/dL (13.0-17.5) 11.9 g/dL (13.0-17.5) Hematocrit 43.3 % (39.0-53.0) 33.8 % (39.0-53.0) Mean Corpuscular Volume 94 fL (79-100) 95 fL (79-100) Mean Corpuscular Hemoglobin 33 pg (25-35) 33 pg (25-35) Mean Corpuscular Hemoglobin Concent 35 g/dL (31-37) 35 g/dL (31-37) Red Cell Distribution Width 13.4 % (11.5-14.5) 13.2 % (11.5-14.5) Platelet Count 189 x10^3/uL (140-400) 161 x10^3/uL (140-400) Neutrophils (%) (Auto) 94 % (31-73) 88 % (31-73) Lymphocytes (%) (Auto) 1 % (24-48) 5 % (24-48) Monocytes (%) (Auto) 4 % (0-9) 8 % (0-9) Eosinophils (%) (Auto) 0 % (0-3) 0 % (0-3) Basophils (%) (Auto) 0 % (0-3) 0 % (0-3) Neutrophils # (Auto) 18.3 x10^3uL (1.8-7.7) 15.3 x10^3uL (1.8-7.7) Lymphocytes # (Auto) 0.3 x10^3/uL (1.0-4.8) 0.8 x10^3/uL (1.0-4.8) Monocytes # (Auto) 0.8 x10^3/uL (0.0-1.1) 1.3 x10^3/uL (0.0-1.1) Eosinophils # (Auto) 0.0 x10^3/uL (0.0-0.7) 0.0 x10^3/uL (0.0-0.7) Basophils # (Auto) 0.0 x10^3/uL (0.0-0.2) 0.0 x10^3/uL (0.0-0.2) Segmented Neutrophils % 77 % (35-66) Band Neutrophils % 17 % (0-9) Lymphocytes % 4 % (24-48) Monocytes % 2 % (0-10) Dohle Bodies Present Platelet Estimate Adequate (ADEQUATE) Erythrocyte Sedimentation Rate 65 (0-15) Prothrombin Time 15.4 SEC (11.7-14.0) Prothromb Time International Ratio 1.3 (0.8-1.1) Activated Partial Thromboplast Time 31 SEC (24-38) Sodium Level 135 mmol/L (136-145) 134 mmol/L (136-145) Potassium Level 3.1 mmol/L (3.5-5.1) 3.0 mmol/L (3.5-5.1) Chloride Level 92 mmol/L (98-107) 97 mmol/L (98-107) Carbon Dioxide Level 29 mmol/L (21-32) 26 mmol/L (21-32) Anion Gap 14 (6-14) 11 (6-14) Blood Urea Nitrogen 18 mg/dL (8-26) 14 mg/dL (8-26) Creatinine 1.2 mg/dL (0.7-1.3) 0.9 mg/dL (0.7-1.3) Estimated GFR (Cockcroft-Gault) 63.8 89.0 BUN/Creatinine Ratio 15 (6-20) Glucose Level 122 mg/dL (70-99) 110 mg/dL (70-99) Lactic Acid Level 1.4 mmol/L (0.4-2.0) Calcium Level 8.7 mg/dL (8.5-10.1) 7.5 mg/dL (8.5-10.1) Magnesium Level 2.6 mg/dL (1.8-2.4) Total Bilirubin 0.8 mg/dL (0.2-1.0) Aspartate Amino Transf (AST/SGOT) 31 U/L (15-37) Alanine Aminotransferase (ALT/SGPT) 27 U/L (16-63) Alkaline Phosphatase 88 U/L (46-116) Total Protein 8.1 g/dL (6.4-8.2) Albumin 3.7 g/dL (3.4-5.0) Albumin/Globulin Ratio 0.8 (1.0-1.7) Lipase 75 U/L (73-393) Iron Level 23 ug/dL (65-175) Total Iron Binding Capacity 175 ug/dL (250-450) Iron Saturation 13 % (15-34) Laboratory Tests Test 01/01/19 15:15 01/02/19 05:30 White Blood Count 19.4 x10^3/uL (4.0-11.0) 17.4 x10^3/uL (4.0-11.0) Red Blood Count 4.59 x10^6/uL (4.30-5.70) 3.57 x10^6/uL (4.30-5.70) Hemoglobin 15.0 g/dL (13.0-17.5) 11.9 g/dL (13.0-17.5) Hematocrit 43.3 % (39.0-53.0) 33.8 % (39.0-53.0) Mean Corpuscular Volume 94 fL (79-100) 95 fL (79-100) Mean Corpuscular Hemoglobin 33 pg (25-35) 33 pg (25-35) Mean Corpuscular Hemoglobin Concent 35 g/dL (31-37) 35 g/dL (31-37) Red Cell Distribution Width 13.4 % (11.5-14.5) 13.2 % (11.5-14.5) Platelet Count 189 x10^3/uL (140-400) 161 x10^3/uL (140-400) Neutrophils (%) (Auto) 94 % (31-73) 88 % (31-73) Lymphocytes (%) (Auto) 1 % (24-48) 5 % (24-48) Monocytes (%) (Auto) 4 % (0-9) 8 % (0-9) Eosinophils (%) (Auto) 0 % (0-3) 0 % (0-3) Basophils (%) (Auto) 0 % (0-3) 0 % (0-3) Neutrophils # (Auto) 18.3 x10^3uL (1.8-7.7) 15.3 x10^3uL (1.8-7.7) Lymphocytes # (Auto) 0.3 x10^3/uL (1.0-4.8) 0.8 x10^3/uL (1.0-4.8) Monocytes # (Auto) 0.8 x10^3/uL (0.0-1.1) 1.3 x10^3/uL (0.0-1.1) Eosinophils # (Auto) 0.0 x10^3/uL (0.0-0.7) 0.0 x10^3/uL (0.0-0.7) Basophils # (Auto) 0.0 x10^3/uL (0.0-0.2) 0.0 x10^3/uL (0.0-0.2) Segmented Neutrophils % 77 % (35-66) Band Neutrophils % 17 % (0-9) Lymphocytes % 4 % (24-48) Monocytes % 2 % (0-10) Dohle Bodies Present Platelet Estimate Adequate (ADEQUATE) Erythrocyte Sedimentation Rate 65 (0-15) Prothrombin Time 15.4 SEC (11.7-14.0) Prothromb Time International Ratio 1.3 (0.8-1.1) Activated Partial Thromboplast Time 31 SEC (24-38) Sodium Level 135 mmol/L (136-145) 134 mmol/L (136-145) Potassium Level 3.1 mmol/L (3.5-5.1) 3.0 mmol/L (3.5-5.1) Chloride Level 92 mmol/L (98-107) 97 mmol/L (98-107) Carbon Dioxide Level 29 mmol/L (21-32) 26 mmol/L (21-32) Anion Gap 14 (6-14) 11 (6-14) Blood Urea Nitrogen 18 mg/dL (8-26) 14 mg/dL (8-26) Creatinine 1.2 mg/dL (0.7-1.3) 0.9 mg/dL (0.7-1.3) Estimated GFR (Cockcroft-Gault) 63.8 89.0 BUN/Creatinine Ratio 15 (6-20) Glucose Level 122 mg/dL (70-99) 110 mg/dL (70-99) Lactic Acid Level 1.4 mmol/L (0.4-2.0) Calcium Level 8.7 mg/dL (8.5-10.1) 7.5 mg/dL (8.5-10.1) Magnesium Level 2.6 mg/dL (1.8-2.4) Total Bilirubin 0.8 mg/dL (0.2-1.0) Aspartate Amino Transf (AST/SGOT) 31 U/L (15-37) Alanine Aminotransferase (ALT/SGPT) 27 U/L (16-63) Alkaline Phosphatase 88 U/L (46-116) Total Protein 8.1 g/dL (6.4-8.2) Albumin 3.7 g/dL (3.4-5.0) Albumin/Globulin Ratio 0.8 (1.0-1.7) Lipase 75 U/L (73-393) Iron Level 23 ug/dL (65-175) Total Iron Binding Capacity 175 ug/dL (250-450) Iron Saturation 13 % (15-34) Medications Current Medications Iohexol (Omnipaque 300 Mg/ml) 75 ml 1X ONCE IV Last administered on 01/01/19at 16:31; Start 01/01/19 at 16:30; Stop 01/01/19 at 16:31; Status DC Iohexol (Omnipaque 240 Mg/ml) 30 ml 1X ONCE IV ; Start 01/01/19 at 16:30; Stop 01/01/19 at 16:31; Status DC Iohexol (Omnipaque 240 Mg/ml) 50 ml 1X ONCE PO Last administered on 01/01/19at 16:32; Start 01/01/19 at 16:45; Stop 01/01/19 at 16:46; Status DC Info (CONTRAST GIVEN -- Rx MONITORING) 1 each PRN DAILY PRN MC SEE COMMENTS; Start 01/01/19 at 16:45; Stop 01/03/19 at 16:44 Sodium Chloride 1,000 ml @ 1,000 mls/hr 1X ONCE IV Last administered on at 17:23; Start 01/01/19 at 17:00; Stop 01/01/19 at 17:59; Status DC Fentanyl Citrate (Fentanyl 2ml Vial) 50 mcg 1X ONCE IV Last administered on 01/01/19at 17:25; Start 01/01/19 at 17:00; Stop 01/01/19 at 17:01; Status DC Piperacillin Sod/ Tazobactam Sod 3.375 gm/Sodium Chloride 50 ml @ 100 mls/hr 1X ONCE IV Last administered on 01/01/19at 17:24; Start 01/01/19 at 17:00; Stop 01/01/19 at 17:29; Status DC Metronidazole 100 ml @ 100 mls/hr 1X ONCE IV Last administered on 01/01/19at 17 :24; Start 01/01/19 at 17:00; Stop 01/01/19 at 17:59; Status DC Potassium Chloride (Klor-Con) 40 meq 1X ONCE PO Last administered on 01/01/19at 17:25; Start 01/01/19 at 17:15; Stop 01/01/19 at 17:16; Status DC Magnesium Hydroxide (Milk Of Magnesia) 2,400 mg PRN DAILY PRN PO CONSTIPATION; Start 01/01/19 at 17:15 Docusate Sodium (Colace) 100 mg DAILY PO ; Start 01/02/19 at 09:00 Acetaminophen (Tylenol) 500 mg PRN Q6HRS PRN PO MILD PAIN / TEMP; Start at 17:15 Acetaminophen/ Codeine Phosphate (Tylenol #3) 1 tab PRN Q6HRS PRN PO MODERATE PAIN; Start 01/01/19 at 17:15 Ondansetron HCl (Zofran) 4 mg PRN Q6HRS PRN IV NAUSEA/VOMITING; Start 01/01/19 at 17:15 Ondansetron HCl (Zofran Odt) 4 mg PRN Q6HRS PRN PO NAUSEA/VOMITING; Start at 17:15 Diphenhydramine HCl (Benadryl) 25 mg PRN QHS PRN PO INSOMNIA; Start 01/01/19 at 17:15 Sodium Chloride 1,000 ml @ 150 mls/hr Q6H40M IV Last administered on at 04:31; Start 01/01/19 at 17:14; Stop 01/02/19 at 17:13 Nicotine (Nicoderm Cq 21mg) 1 patch PRN DAILY PRN TD SMOKING CESSATION; Start 01/01/19 at 19:30 Levofloxacin/ Dextrose (Levaquin Per Pharmacy) 1 each PRN DAILY PRN MC SEE COMMENTS; Start 01/01/19 at 19:30 Levofloxacin/ Dextrose 100 ml @ 100 mls/hr Q24H IV Last administered on at 20:13; Start 01/01/19 at 21:00 Alprazolam (Xanax) 0.25 mg PRN Q8HRS PRN PO ANXIETY / AGITATION; Start 01/01/19 at 20:15 Pantoprazole Sodium (PROTONIX VIAL for IV PUSH) 40 mg DAILYAC IVP Last administered on 01/02/19at 09:56; Start 01/02/19 at 10:00 Active Scripts Active Tessalon Perle (Benzonatate) 100 Mg Capsule 1 Cap PO TID Vitals/I & O Vital Sign - Last 24 Hours 01/01/19 01/01/19 01/01/19 01/01/19 13:14 13:43 16:33 16:36 Temp 98.1 98.1 Pulse 138 135 99 97 Resp 14 B/P (MAP) 139/86 (103) 139/86 (103) 107/60 (76) 104/56 (72) Pulse Ox 97 O2 Delivery Room Air Room Air Room Air Room Air 01/01/19 01/01/19 01/01/19 01/01/19 17:06 17:25 17:36 18:06 Pulse 97 95 91 B/P (MAP) 106/58 (74) 105/57 (73) 111/57 (75) Pulse Ox 98 98 96 97 O2 Delivery Room Air Room Air Room Air Room Air 01/01/19 01/01/19 01/01/19 01/01/19 18:36 19:06 19:30 20:46 Temp 99.3 99.3 Pulse 94 87 87 Resp 16 B/P (MAP) 92/55 (67) 93/52 (66) 96/50 (65) Pulse Ox 90 O2 Delivery Room Air Room Air Room Air Room Air 01/01/19 01/02/19 01/02/19 01/02/19 23:00 03:00 07:00 08:15 Temp 98.9 98.6 98.1 98.9 98.6 98.1 Pulse 92 89 72 Resp 16 16 16 B/P (MAP) 95/54 (68) 99/67 (78) 100/60 (73) Pulse Ox 90 91 93 O2 Delivery Room Air Room Air Room Air Room Air Intake and Output 01/01/19 01/01/19 01/02/19 14:59 22:59 06:59 Intake Total 1400 ml 0 ml Output Total 1 ml 1 ml Balance 1399 ml -1 ml ALAINA CHARLES MD Jan 02, 2019 10:31
[2019-01-02 10:41] VITALS: BP 96/61
--- NOTE | 2019-01-02 11:19 | PDOC2 ---
CONSULT Date of Consult Date of Consult DATE: 01/02/19 TIME: 11:14 History of Present Illness Reason for Visit: The patient is a 53 year old male who reported to the ER due to significant constipation. He states that he hasn't had a stool for over 3 weeks. He admits to weight loss and denies noticing bleeding per rectum. He reports coping with his issues by using meth. He currently denies abdominal pain. 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, [place], drug abuse Psych: Anxiety Past Surgical History Past Surgical History appendectomy Past Surgical History: No pertinent history Family History Family History: No Significant Social History <1 pack per day ALCOHOL: occassional (every couple weeks - can't quantify) Drugs: Cocaine, Marijuana, Crystal meth Current Problem List Problem List Problems Medical Problems: (1) Constipation Status: Acute (2) Drug abuse Status: Acute (3) Hypokalemia Status: Acute (4) Leukocytosis Status: Acute (5) Proctitis Status: Acute Current Medications Current Medications Current Medications Iohexol (Omnipaque 300 Mg/ml) 75 ml 1X ONCE IV Last administered on 01/01/19at 16:31; Start 01/01/19 at 16:30; Stop 01/01/19 at 16:31; Status DC Iohexol (Omnipaque 240 Mg/ml) 30 ml 1X ONCE IV ; Start 01/01/19 at 16:30; Stop 01/01/19 at 16:31; Status DC Iohexol (Omnipaque 240 Mg/ml) 50 ml 1X ONCE PO Last administered on 01/01/19at 16:32; Start 01/01/19 at 16:45; Stop 01/01/19 at 16:46; Status DC Info (CONTRAST GIVEN -- Rx MONITORING) 1 each PRN DAILY PRN MC SEE COMMENTS; Start 01/01/19 at 16:45; Stop 01/03/19 at 16:44 Sodium Chloride 1,000 ml @ 1,000 mls/hr 1X ONCE IV Last administered on at 17:23; Start 01/01/19 at 17:00; Stop 01/01/19 at 17:59; Status DC Fentanyl Citrate (Fentanyl 2ml Vial) 50 mcg 1X ONCE IV Last administered on 01/01/19at 17:25; Start 01/01/19 at 17:00; Stop 01/01/19 at 17:01; Status DC Piperacillin Sod/ Tazobactam Sod 3.375 gm/Sodium Chloride 50 ml @ 100 mls/hr 1X ONCE IV Last administered on 01/01/19at 17:24; Start 01/01/19 at 17:00; Stop 01/01/19 at 17:29; Status DC Metronidazole 100 ml @ 100 mls/hr 1X ONCE IV Last administered on 01/01/19at 17 :24; Start 01/01/19 at 17:00; Stop 01/01/19 at 17:59; Status DC Potassium Chloride (Klor-Con) 40 meq 1X ONCE PO Last administered on 01/01/19at 17:25; Start 01/01/19 at 17:15; Stop 01/01/19 at 17:16; Status DC Magnesium Hydroxide (Milk Of Magnesia) 2,400 mg PRN DAILY PRN PO CONSTIPATION; Start 01/01/19 at 17:15 Docusate Sodium (Colace) 100 mg DAILY PO ; Start 01/02/19 at 09:00 Acetaminophen (Tylenol) 500 mg PRN Q6HRS PRN PO MILD PAIN / TEMP; Start at 17:15 Acetaminophen/ Codeine Phosphate (Tylenol #3) 1 tab PRN Q6HRS PRN PO MODERATE PAIN; Start 01/01/19 at 17:15 Ondansetron HCl (Zofran) 4 mg PRN Q6HRS PRN IV NAUSEA/VOMITING; Start 01/01/19 at 17:15 Ondansetron HCl (Zofran Odt) 4 mg PRN Q6HRS PRN PO NAUSEA/VOMITING; Start at 17:15 Diphenhydramine HCl (Benadryl) 25 mg PRN QHS PRN PO INSOMNIA; Start 01/01/19 at 17:15 Sodium Chloride 1,000 ml @ 150 mls/hr Q6H40M IV Last administered on at 04:31; Start 01/01/19 at 17:14; Stop 01/02/19 at 17:13 Nicotine (Nicoderm Cq 21mg) 1 patch PRN DAILY PRN TD SMOKING CESSATION; Start 01/01/19 at 19:30 Levofloxacin/ Dextrose (Levaquin Per Pharmacy) 1 each PRN DAILY PRN MC SEE COMMENTS; Start 01/01/19 at 19:30 Levofloxacin/ Dextrose 100 ml @ 100 mls/hr Q24H IV Last administered on at 20:13; Start 01/01/19 at 21:00 Alprazolam (Xanax) 0.25 mg PRN Q8HRS PRN PO ANXIETY / AGITATION; Start 01/01/19 at 20:15 Pantoprazole Sodium (PROTONIX VIAL for IV PUSH) 40 mg DAILYAC IVP Last administered on 01/02/19at 09:56; Start 01/02/19 at 10:00 Active Scripts Active Tessalon Perle (Benzonatate) 100 Mg Capsule 1 Cap PO TID Allergies Allergies: Coded Allergies: No Known Drug Allergies (Unverified , 12/29/14) ROS General: YES: Other (weight loss) PSYCHOLOGICAL ROS: No: Anxiety, Behavioral Disorder, Concentration difficultie , Decreased libido, Depression, Disorientation, Hallucinations, Hostility, Irritablity, Memory difficulties, Mood Swings, Obsessive thoughts, Physical abuse, Sexual abuse, Sleep disturbances, Suicidal ideation, Other Eyes: No Blurry vision, No Decreased vision, No Double vision, No Dry eyes, No Excessive tearing, No Eye Pain, No Itchy Eyes, No Loss of vision, No Photophobia , No Scotomata, No Uses contacts, No Uses glasses, No Other HEENT: No: Heacaches, Visual Changes, Hearing change, Nasal congestion, Nasal discharge, Oral lesions, Sinus pain, Sore Throat, Epistaxis, Sneezing, Snoring, Tinnitus, Vertigo, Vocal changes, Other Hematological and Lymphatic: No: Bleeding Problems, Blood Clots, Blood Transfusions, Brusing, Night Sweats, Pallor, Swollen Lymph Nodes, Other ENDOCRINE: No: Breast Changes, Galactorrhea, Hair Pattern Changes, Hot Flashes , Malaise/lethargy, Mood Swings, Palpitations, Polydipsia/polyuria, Skin Changes , Temperature Intolerance, Unexpected Weight Changes, Other Respiratory: No: Cough, Hemoptysis, Orthopnea, Pleuritic Pain, Shortness of breath, SOB with excertion, Sputum Changes, Stridor, Tachypnea, Wheezing, Other Cardiovascular: No Chest Pain, No Palpitations, No Orthopnea, No Paroxysmal Noc. Dyspnea, No Edema, No Lt Headedness, No Other Gastrointestinal: Yes Constipation Genitourinary: No Dysuria, No Frequency, No Incontinence, No Hematuria, No Retention, No Discharge, No Urgency, No Pain, No Flank Pain, No Other, No , No , No , No , No , No , No Musculoskeletal: No Gait Disturbance, No Joint Pain, No Joint Stiffness, No Joint Swelling, No Muscle Pain, No Muscular Weakness, No Pain In:, No Swelling In:, No Other Neurological: No Behavorial Changes, No Bowel/Bladder ControlChng, No Confusion , No Dizziness, No Gait Disturbance, No Headaches, No Impaired Coord/balance, No Memory Loss, No Numbness/Tingling, No Seizures, No Speech Problems, No Tremors, No Visual Changes, No Weakness, No Other Physical Exam Physical Exam rectal exam, tone mildly poor, no palpable mass at finger length General: Alert, Oriented X3 HEENT: Atraumatic, Other (R eye absent) Lungs: Clear to auscultation Heart: Normal S1 Abdomen: Soft, No tenderness Extremities: No clubbing, No cyanosis Skin: No rashes Psych/Mental Status: Other (blunted affect) MUSCULOSKELETAL: No joint tenderness Vitals VITALS Vital Signs Date Time Temp Pulse Resp B/P (MAP) Pulse Ox O2 Delivery O2 Flow Rate FiO2 01/02/19 10:41 98.2 71 18 96/61 (73) 96 Room Air 98.2 Labs Labs Laboratory Tests Test 01/01/19 15:15 01/02/19 05:30 White Blood Count 19.4 x10^3/uL (4.0-11.0) 17.4 x10^3/uL (4.0-11.0) Red Blood Count 4.59 x10^6/uL (4.30-5.70) 3.57 x10^6/uL (4.30-5.70) Hemoglobin 15.0 g/dL (13.0-17.5) 11.9 g/dL (13.0-17.5) Hematocrit 43.3 % (39.0-53.0) 33.8 % (39.0-53.0) Mean Corpuscular Volume 94 fL (79-100) 95 fL (79-100) Mean Corpuscular Hemoglobin 33 pg (25-35) 33 pg (25-35) Mean Corpuscular Hemoglobin Concent 35 g/dL (31-37) 35 g/dL (31-37) Red Cell Distribution Width 13.4 % (11.5-14.5) 13.2 % (11.5-14.5) Platelet Count 189 x10^3/uL (140-400) 161 x10^3/uL (140-400) Neutrophils (%) (Auto) 94 % (31-73) 88 % (31-73) Lymphocytes (%) (Auto) 1 % (24-48) 5 % (24-48) Monocytes (%) (Auto) 4 % (0-9) 8 % (0-9) Eosinophils (%) (Auto) 0 % (0-3) 0 % (0-3) Basophils (%) (Auto) 0 % (0-3) 0 % (0-3) Neutrophils # (Auto) 18.3 x10^3uL (1.8-7.7) 15.3 x10^3uL (1.8-7.7) Lymphocytes # (Auto) 0.3 x10^3/uL (1.0-4.8) 0.8 x10^3/uL (1.0-4.8) Monocytes # (Auto) 0.8 x10^3/uL (0.0-1.1) 1.3 x10^3/uL (0.0-1.1) Eosinophils # (Auto) 0.0 x10^3/uL (0.0-0.7) 0.0 x10^3/uL (0.0-0.7) Basophils # (Auto) 0.0 x10^3/uL (0.0-0.2) 0.0 x10^3/uL (0.0-0.2) Segmented Neutrophils % 77 % (35-66) Band Neutrophils % 17 % (0-9) Lymphocytes % 4 % (24-48) Monocytes % 2 % (0-10) Dohle Bodies Present Platelet Estimate Adequate (ADEQUATE) Erythrocyte Sedimentation Rate 65 (0-15) Prothrombin Time 15.4 SEC (11.7-14.0) Prothromb Time International Ratio 1.3 (0.8-1.1) Activated Partial Thromboplast Time 31 SEC (24-38) Sodium Level 135 mmol/L (136-145) 134 mmol/L (136-145) Potassium Level 3.1 mmol/L (3.5-5.1) 3.0 mmol/L (3.5-5.1) Chloride Level 92 mmol/L (98-107) 97 mmol/L (98-107) Carbon Dioxide Level 29 mmol/L (21-32) 26 mmol/L (21-32) Anion Gap 14 (6-14) 11 (6-14) Blood Urea Nitrogen 18 mg/dL (8-26) 14 mg/dL (8-26) Creatinine 1.2 mg/dL (0.7-1.3) 0.9 mg/dL (0.7-1.3) Estimated GFR (Cockcroft-Gault) 63.8 89.0 BUN/Creatinine Ratio 15 (6-20) Glucose Level 122 mg/dL (70-99) 110 mg/dL (70-99) Lactic Acid Level 1.4 mmol/L (0.4-2.0) Calcium Level 8.7 mg/dL (8.5-10.1) 7.5 mg/dL (8.5-10.1) Magnesium Level 2.6 mg/dL (1.8-2.4) Total Bilirubin 0.8 mg/dL (0.2-1.0) Aspartate Amino Transf (AST/SGOT) 31 U/L (15-37) Alanine Aminotransferase (ALT/SGPT) 27 U/L (16-63) Alkaline Phosphatase 88 U/L (46-116) Total Protein 8.1 g/dL (6.4-8.2) Albumin 3.7 g/dL (3.4-5.0) Albumin/Globulin Ratio 0.8 (1.0-1.7) Lipase 75 U/L (73-393) Iron Level 23 ug/dL (65-175) Total Iron Binding Capacity 175 ug/dL (250-450) Iron Saturation 13 % (15-34) Hepatitis A IgM Antibody Nonreactive (Nonreactive) Hepatitis B Surface Antigen Nonreactive (Nonreactive) Hepatitis B Core IgM Antibody Nonreactive (Nonreactive) Hepatitis C IgG Antibody Nonreactive (Nonreactive) Laboratory Tests Test 01/01/19 15:15 01/02/19 05:30 White Blood Count 19.4 x10^3/uL (4.0-11.0) 17.4 x10^3/uL (4.0-11.0) Red Blood Count 4.59 x10^6/uL (4.30-5.70) 3.57 x10^6/uL (4.30-5.70) Hemoglobin 15.0 g/dL (13.0-17.5) 11.9 g/dL (13.0-17.5) Hematocrit 43.3 % (39.0-53.0) 33.8 % (39.0-53.0) Mean Corpuscular Volume 94 fL (79-100) 95 fL (79-100) Mean Corpuscular Hemoglobin 33 pg (25-35) 33 pg (25-35) Mean Corpuscular Hemoglobin Concent 35 g/dL (31-37) 35 g/dL (31-37) Red Cell Distribution Width 13.4 % (11.5-14.5) 13.2 % (11.5-14.5) Platelet Count 189 x10^3/uL (140-400) 161 x10^3/uL (140-400) Neutrophils (%) (Auto) 94 % (31-73) 88 % (31-73) Lymphocytes (%) (Auto) 1 % (24-48) 5 % (24-48) Monocytes (%) (Auto) 4 % (0-9) 8 % (0-9) Eosinophils (%) (Auto) 0 % (0-3) 0 % (0-3) Basophils (%) (Auto) 0 % (0-3) 0 % (0-3) Neutrophils # (Auto) 18.3 x10^3uL (1.8-7.7) 15.3 x10^3uL (1.8-7.7) Lymphocytes # (Auto) 0.3 x10^3/uL (1.0-4.8) 0.8 x10^3/uL (1.0-4.8) Monocytes # (Auto) 0.8 x10^3/uL (0.0-1.1) 1.3 x10^3/uL (0.0-1.1) Eosinophils # (Auto) 0.0 x10^3/uL (0.0-0.7) 0.0 x10^3/uL (0.0-0.7) Basophils # (Auto) 0.0 x10^3/uL (0.0-0.2) 0.0 x10^3/uL (0.0-0.2) Segmented Neutrophils % 77 % (35-66) Band Neutrophils % 17 % (0-9) Lymphocytes % 4 % (24-48) Monocytes % 2 % (0-10) Dohle Bodies Present Platelet Estimate Adequate (ADEQUATE) Erythrocyte Sedimentation Rate 65 (0-15) Prothrombin Time 15.4 SEC (11.7-14.0) Prothromb Time International Ratio 1.3 (0.8-1.1) Activated Partial Thromboplast Time 31 SEC (24-38) Sodium Level 135 mmol/L (136-145) 134 mmol/L (136-145) Potassium Level 3.1 mmol/L (3.5-5.1) 3.0 mmol/L (3.5-5.1) Chloride Level 92 mmol/L (98-107) 97 mmol/L (98-107) Carbon Dioxide Level 29 mmol/L (21-32) 26 mmol/L (21-32) Anion Gap 14 (6-14) 11 (6-14) Blood Urea Nitrogen 18 mg/dL (8-26) 14 mg/dL (8-26) Creatinine 1.2 mg/dL (0.7-1.3) 0.9 mg/dL (0.7-1.3) Estimated GFR (Cockcroft-Gault) 63.8 89.0 BUN/Creatinine Ratio 15 (6-20) Glucose Level 122 mg/dL (70-99) 110 mg/dL (70-99) Lactic Acid Level 1.4 mmol/L (0.4-2.0) Calcium Level 8.7 mg/dL (8.5-10.1) 7.5 mg/dL (8.5-10.1) Magnesium Level 2.6 mg/dL (1.8-2.4) Total Bilirubin 0.8 mg/dL (0.2-1.0) Aspartate Amino Transf (AST/SGOT) 31 U/L (15-37) Alanine Aminotransferase (ALT/SGPT) 27 U/L (16-63) Alkaline Phosphatase 88 U/L (46-116) Total Protein 8.1 g/dL (6.4-8.2) Albumin 3.7 g/dL (3.4-5.0) Albumin/Globulin Ratio 0.8 (1.0-1.7) Lipase 75 U/L (73-393) Iron Level 23 ug/dL (65-175) Total Iron Binding Capacity 175 ug/dL (250-450) Iron Saturation 13 % (15-34) Hepatitis A IgM Antibody Nonreactive (Nonreactive) Hepatitis B Surface Antigen Nonreactive (Nonreactive) Hepatitis B Core IgM Antibody Nonreactive (Nonreactive) Hepatitis C IgG Antibody Nonreactive (Nonreactive) Assessment/Plan Assessment/Plan Weight loss, constipation, CT scan with abnormal findings in the rectum; GI consult in progress, recommend colonoscopy. If tumor present would need biopsy , MRI to assess local extent. PRUDENCIO HIGHTOWER MD Jan 02, 2019 11:19
--- NOTE | 2019-01-02 12:23 | NUR ---
Patient refused anymore IV fluids.
--- NOTE | 2019-01-02 14:22 | NUR ---
Patient left AMA, stating that he forgot he had a court appointment. IV removed and all belongings left with patient. Patient was escorted off unit by DEVELOPER [employer]ATIONS MANAGER.
== END 2019-01-02 14:24 | disposition left against medical advice (07) | DRG 378 ==
LOC: ER 13:02 → 5 NORTH 17:13
PROVIDERS: ADMIT Internal Medicine; ATTEND Internal Medicine
DX: K62.5 Hemorrhage of anus and rectum (principal); K56.609 Unspecified intestinal obstruction, unspecified as to partial versus complete obstruction; K62.89 Other specified diseases of anus and rectum; E87.6 Hypokalemia; F17.210 Nicotine dependence, cigarettes, uncomplicated; G47.33 Obstructive sleep apnea (adult) (pediatric); D64.9 Anemia, unspecified; Z53.21 Procedure and treatment not carried out due to patient leaving prior to being seen by health care provider; D72.829 Elevated white blood cell count, unspecified; N32.89 Other specified disorders of bladder; F15.10 Other stimulant abuse, uncomplicated; F41.9 Anxiety disorder, unspecified; Z87.01 Personal history of pneumonia (recurrent); Z71.6 Tobacco abuse counseling
CPT/HCPCS: 36415; 74177; 80048; 80053; 83540; 83550; 83605; 83690; 83735; 85007; 85025; 85610; 85651; 85730; 86705; 86709; 86803; 87340; 96365; 96368; 96375; C9113; J1956; J2543; J3010; J3490; J7030; Q9966; Q9967; 99285-25